=== PATIENT | female | born 2000 | race Two or more races ===

== ENCOUNTER 2022-06-12 12:35 | Outpatient (CLI) | payer OTHER | END 2022-06-12 13:35 | disposition home or self-care (01) | LOC: PRENATAL 12:35 | PROVIDERS: ATTEND Obstetrics & Gynecology Maternal & Fetal Medicine | DX: Z76.1 Encounter for health supervision and care of foundling (principal) ==

== ENCOUNTER 2022-06-26 14:55 | Outpatient (CLI) | payer OTHER | END 2022-06-26 16:36 | disposition home or self-care (01) | LOC: PRENATAL 14:55 | PROVIDERS: ATTEND Obstetrics & Gynecology Maternal & Fetal Medicine | DX: O35.9XX0 Maternal care for (suspected) fetal abnormality and damage, unspecified, not applicable or unspecified (principal); O35.3XX0 Maternal care for (suspected) damage to fetus from viral disease in mother, not applicable or unspecified; Z3A.19 19 weeks gestation of pregnancy ==

== ENCOUNTER 2022-08-27 09:29 | Outpatient (CLI) | payer OTHER | END 2022-08-27 10:02 | disposition home or self-care (01) | LOC: PRENATAL 09:29 | PROVIDERS: ATTEND Obstetrics & Gynecology Maternal & Fetal Medicine | DX: O26.849 Uterine size-date discrepancy, unspecified trimester (principal); Z3A.27 27 weeks gestation of pregnancy ==

== ENCOUNTER 2022-10-16 15:15 | Outpatient (CLI) | payer OTHER | END 2022-10-16 16:25 | disposition home or self-care (01) | LOC: PRENATAL 15:15 | PROVIDERS: ATTEND Obstetrics & Gynecology Maternal & Fetal Medicine | DX: O26.849 Uterine size-date discrepancy, unspecified trimester (principal); O36.8199 Decreased fetal movements, unspecified trimester, other fetus; Z3A.35 35 weeks gestation of pregnancy ==

== ENCOUNTER 2022-11-02 15:21 | Inpatient (IN) | payer OTHER ==
[~2022-11-02] VITALS: Ht 162.6 cm; Wt 83.9 kg
[2022-11-10] MEDS ORDERED: PRENATAL VITAM1 EAC4 PO (12:17)
== END 2022-11-12 12:06 | disposition home or self-care (01) | DRG 807 ==
LOC: LDR 11-10 11:32 → OB/GYN 11-10 22:52
PROVIDERS: ADMIT Obstetrics & Gynecology; ATTEND Obstetrics & Gynecology
PROC: 10E0XZZ Delivery of Products of Conception, External Approach (ICD-10-PCS; principal; 2022-11-10)
PROC: 4A1HXCZ Monitoring of Products of Conception, Cardiac Rate, External Approach (ICD-10-PCS; 2022-11-10)
DX: O42.12 Full-term premature rupture of membranes, onset of labor more than 24 hours following rupture (principal); Z37.0 Single live birth; Z3A.38 38 weeks gestation of pregnancy; Z20.822 Contact with and (suspected) exposure to COVID-19

== ENCOUNTER 2025-03-28 17:55 | Emergency (ER) | payer OTHER ==
[~2025-03-28] VITALS: Ht 167.6 cm; Wt 68.0 kg
[~2025-03-28 17:55] MED LIST: PRENATAL VITAM1 EAC4 PO
[2025-03-28 20:55] LABS: BASO % 0.6 % (0.1-1.2); EOS # 0.10 (0.04-0.54); EOS % 1.2 % (0.7-7.0); LYMPH # 2.24 (1.18-3.74); LYMPH % 25.9 % (19.3-53.1); MEAN PLATELET VOLUME 10.00 fl (9.4-12.4); MONO # 0.61 (0.24-0.82); MONO % 7.0 % (4.7-12.5); NEUT # 5.64 (1.56-6.13); NEUT % 65.1 % (34.0-71.1); RED CELL DISTRIBUTION WIDTH 11.8 % (11.6-14.4)
[2025-03-28 21:22] LABS: ALT/SGPT 21.0 U/L (12-78); AST/SGOT 10.0 U/L (15-37); BILIRUBIN TOTAL 1.38 mg/dL (0.3-1.2); BUN CREA RATIO 15.0 (7.0-25.0); CREATININE SERUM 0.99 mg/dL (0.55-1.02); GFR 70.14; GLOBULINA 3.7 G/DL (2.4-3.5); GLUCOSE FASTING 99.0 mg/dL (65-100); OSMOLALITY SERUM 286.0 MOSM/KG (275-295)
[2025-03-28 22:01] LABS: URINE APPEARANCE Turbid; URINE BILIRRUBIN Negative (NEGATIVE); URINE BLOOD Negative; URINE COLOR Yellow; URINE GLUCOSE Negative (NEGATIVE); URINE KETONE Negative (NEGATIVE); URINE LEUKOCYTE Moderate; URINE NITRATE Negative; URINE PROTEIN Negative (NEGATIVE); URINE UROBILINOGEN 1.0 E.U./dl
[2025-03-28 22:06] LABS: URINE BACTERIA 3210.0 uL (0.0-1933); URINE EPITHELIAL CELLS 164.6 uL (0.0-38.8); URINE RBC 11.8 uL (0.0-20.8); URINE WBC 44.6 uL (0.0-23.2)
[2025-03-28 22:13] LABS: URINE CAST 0.28 uL (0.0-1.40)
[2025-03-28] MEDS ORDERED: METRONIDAZOLE500 MG PO (23:24)
[2025-03-28] MEDS ORDERED: BACTRIM DS TAB1 EACH PO (23:24)
== END 2025-03-29 03:06 | disposition home or self-care (01) ==
LOC: ER 17:56
PROVIDERS: Preventive Medicine Public Health & General Preventive Medicine
DX: N39.0 Urinary tract infection, site not specified (principal); A59.01 Trichomonal vulvovaginitis; R30.0 Dysuria; R11.0 Nausea